=== PATIENT | female | born 1950 | race African-American/Black ===

== ENCOUNTER → 2019-02-28 | Outpatient (CLI) | payer OTHER ==
--- NOTE | 2019-02-28 09:05 | RAD ---
DATE: 02/28/2019 EXAM: MAMMO SUSANNAH SCREENING BILATERAL HISTORY: Routine screening COMPARISON: 03/07/2012 This study was interpreted with the benefit of Computerized Aided Detection (CAD). Breast Density: SCATTERED The breast parenchyma shows scattered fibroglandular densities. Breast parenchyma level B. FINDINGS: 2-D and 3-D tomosynthesis imaging was performed in CC and MLO projections. No new or enlarging breast densities are seen. Benign-appearing lymph node type densities are again noted in the axillary regions. Benign type calcifications are present. No suspicious microcalcifications have developed. IMPRESSION: There is no mammographic evidence of malignancy in either breast. BI-RADS CATEGORY: 2 BENIGN FINDING(S) RECOMMENDED FOLLOW-UP: 12M 12 MONTH FOLLOW-UP PQRS compliance statement: Patient information was entered into a reminder system with a target due date for the next mammogram. Mammography is a sensitive method for finding small breast cancers, but it does not detect them all and is not a substitute for careful clinical examination. A negative mammogram does not negate a clinically suspicious finding and should not result in delay in biopsying a clinically suspicious abnormality. "Our facility is accredited by the [employer] Mammography Program."
== END | disposition home or self-care (01) ==
LOC: MAMMO 07:58
PROVIDERS: ATTEND Family Medicine
DX: Z12.31 Encounter for screening mammogram for malignant neoplasm of breast (principal); N64.89 Other specified disorders of breast
CPT/HCPCS: 77063; 77067

== ENCOUNTER → 2019-06-01 | Outpatient (CLI) | payer OTHER ==
[~2019-06-01] MED LIST: AMLO10TA8 PO; ATOR20TA58 PO; HYDR12.575 PO
--- NOTE | 2019-06-01 10:54 | CARD ---
MR#: [id number] Date of Study: 06/01/2019 Ordering Physician: DAVE JORDAN, Referring Physician: DAVE JORDAN Tech: Alycia Orr RDCS APPROVED REPORT EXAM: Two-dimensional and M-mode echocardiogram with Doppler and color Doppler. Other Information Quality : AverageHR: 77bpm Rhythm : NSR INDICATION Arrhythmia 2D DIMENSIONS RVDd3.1 (2.9-3.5cm)Left Atrium(2D)3.9 (1.6-4.0cm) IVSd1.6 (0.7-1.1cm)Aortic Root(2D)2.7 (2.0-3.7cm) LVDd3.6 (3.9-5.9cm)LVOT Diameter1.9 (1.8-2.4cm) PWd0.9 (0.7-1.1cm)LVDs2.1 (2.5-4.0cm) FS (%) 42.7 %SV41.0 ml LVEF(%)74.7 (>50%) M-Mode DIMENSIONS Left Atrium(MM)3.87 (2.5-4.0cm)Aortic Root3.22 (2.2-3.7cm) Aortic Valve AoV Peak Shyam.163.7cm/sAoV VTI30.4cm AO Peak GR.10.7mmHgLVOT Peak Shyam.143.8cm/s AO Mean GR.5mmHgAVA (VMAX)2.39cm2 CORNELIUS (VTI)2.40cm2 Mitral Valve MV E Fhqmevgp50.9cm/sMV DECEL HSAR716ce MV A Nvrcxmsg066.7cm/sE/A Ratio0.8 Pulmonary Valve PV Peak Gmysnkqa837.7cm/s Tricuspid Valve TR P. Stcwkjek654yk/sRAP WQVCNRTB2krEx TR Peak Gr.76wnEjLAAW52ufSt LEFT VENTRICLE The left ventricle is normal size. There is moderate asymmetric left ventricular hypertrophy. The lef t ventricle is hyperdynamic. The Ejection Fraction is >70%. There is normal LV segmental wall motion. Transmitral Doppler flow pattern is Grade I-abnormal relaxation pattern. RIGHT VENTRICLE The right ventricle is normal size. There is normal right ventricular wall thickness. The right ventr icular systolic function is normal. ATRIA The left atrium size is normal. The right atrium size is normal. The interatrial septum is intact wit h no evidence for an atrial septal defect or patent foramen ovale as noted on 2-D or Doppler imaging. AORTIC VALVE The aortic valve is normal in structure and function. The aortic valve is trileaflet. Doppler and Col or Flow revealed trace aortic regurgitation. There is no significant aortic valvular stenosis. There is no aortic valvular vegetation. MITRAL VALVE The mitral valve is thickened but opens well. There is no evidence of mitral valve prolapse. There is no mitral valve stenosis. Doppler and Color-flow revealed trace mitral regurgitation. TRICUSPID VALVE The tricuspid valve is normal in structure and function. Doppler and Color Flow revealed trace tricus pid regurgitation. The PA pressure was estimated at 33 mmHg. There is no tricuspid valve prolapse or vegetation. There is no tricuspid valve stenosis. PULMONIC VALVE The pulmonary valve is normal in structure and function. Doppler and Color Flow revealed trace pulmon ic valvular regurgitation. There is no pulmonic valvular stenosis. GREAT VESSELS The aortic root is normal in size. The ascending aorta is normal in size. The IVC is normal in size a nd collapses >50% with inspiration. PERICARDIAL EFFUSION There is no evidence of significant pericardial effusion. Critical Notification Critical Value: No <Conclusion> The left ventricle is hyperdynamic. The Ejection Fraction is >70%. There is normal LV segmental wall motion. Transmitral Doppler flow pattern is Grade I-abnormal relaxation pattern. Trace aortic regurgitation. Trace mitral regurgitation. Trace tricuspid regurgitation. The PA pressure was estimated at 33 mmHg. There is no evidence of significant pericardial effusion. Signed by : Dave Jordan, Electronically Approved : 06/01/2019 10:53:51
== END | disposition home or self-care (01) ==
LOC: ECHO 09:57
PROVIDERS: ATTEND Internal Medicine Cardiovascular Disease
DX: I51.7 Cardiomegaly (principal)
CPT/HCPCS: 93306

== ENCOUNTER → 2019-06-06 | Day surgery (SDC) | payer OTHER ==
[~2019-06-06] MED LIST changes: +IV RINGERS,LACTATED 1000ML 1,000 ML IV SCH; +PROPOFOL 20 ML IV ONE
--- NOTE | 2019-06-06 09:23 | CONS ---
DATE OF CONSULTATION: REFERRING PHYSICIAN: Chip De León MD REASON FOR CONSULTATION: Colorectal screening, family history of colon polyps/cancer. HISTORY OF PRESENT ILLNESS: A 68-year-old -[place] female with past medical history significant for hypertension, hyperlipidemia, status post cholecystectomy, hysterectomy, is seen for colonoscopy. Bowel habits are regular without diarrhea or constipation. There has been infrequent bleeding. Weight and appetite are stable. Family history is significant for colon polyps and possible cancer with her father and she is otherwise without additional complaints. PAST MEDICAL HISTORY: Hypertension, hyperlipidemia. ALLERGIES: LISINOPRIL. MEDICATIONS: Include amlodipine, atorvastatin, hydrochlorothiazide. FAMILY AND SOCIAL HISTORY: Significant for diabetes with her mother and colon polyps with her father: She is a nondrinker, nonsmoker. She is retired from [employer]. PAST SURGICAL HISTORY: Status post cholecystectomy, hysterectomy. REVIEW OF SYSTEMS: HEENT: There is no decrease in visual acuity issues. CARDIAC: There is history of hypertension. PULMONARY: No history of shortness breath, cough, asthma. RENAL: No dysuria, frequency, hematuria. NEUROLOGIC: No stroke, migraine, neuropathy. PSYCHIATRIC: No mood swings, depression, insomnia. GASTROINTESTINAL: See history of present illness. ENDOCRINE: History of hyperlipidemia. DERMATOLOGIC: No skin rashes or pruritus. HEMATOLOGIC: No bleeding, bruising, coagulopathy. MUSCULOSKELETAL: No history of osteoarthrosis, arthralgias, myalgias. PHYSICAL EXAMINATION: GENERAL: Reveals a well-nourished, well-developed -[place] female who is alert, cooperative, in no acute distress. VITAL SIGNS: Temperature 98.1, pulse 96, respirations 20. HEENT: Exam is normocephalic, atraumatic head. Pupils and extraocular muscles are not tested. Sclerae anicteric. NECK: Supple. LUNGS: Clear. CARDIOVASCULAR: Reveals an S1, S2 without S3, S4 or appreciable murmur. ABDOMEN: Reveals a soft abdomen, normal bowel sounds, without appreciable hepatosplenomegaly with right upper quadrant cholecystectomy incision and infraumbilical hysterectomy incision. EXTREMITIES: Reveal no cyanosis, clubbing or edema. IMPRESSION: Colorectal screening with family history of colonic polyps/cancer is warranted at this time. Risks and benefits of procedure including risk of hemorrhage and perforation requiring operation were discussed with the patient who is willing to proceed at this time. I would like to thank Dr. De León for allowing us to consult and participate in this patient's care. KAISER BREWSTER MD DR: FLOYD/ray JOB#: [id number] / [id number] CHIP Johnson MD
[2019-06-06 09:35] VITALS: BP 130/73
--- NOTE | 2019-06-08 08:45 | PATHOLOGY ---
[facility] Accession Number: [id number] . 01 Material submitted: . sigmoid colon - SIGMOID POLYP . 01 Clinical history: . Pre-OP DX: Screening Post-OP DX: Polyp . 02 Diagnosis: Colon biopsy, sigmoid polyp: - Pedunculated tubular adenoma. . (JP:mm; 06/07/2019) [facility]06/07/2019 . 02 Comment: There is no high grade dysplasia or evidence of malignancy. . (JPM:mm; 06/07/2019) . 02 Electronically signed: . Stephane Cheng MD, Pathologist NPI- [id number] . 01 Gross description: . Received in formalin labeled "Imani Acosta, sigmoid polyp," is a 1.0 x 0.7 x 0.6 cm polypoid piece of lomeli soft tissue. The margin is inked and the tissue is sectioned perpendicular to the margin and submitted entirely in cassette A1. (TSD; 06/06/2019) TOB/TOB . 02 Pathologist provided ICD-10: D12.5, Z12.11 . 02 CPT . 407382 Specimen Comment: A courtesy copy of this report has been sent to Specimen Comment: [phone], . Specimen Comment: Report sent to and Performed at: 01 [facility] [address], [place] [id number] MD Derick Tavares MD Phone: [phone] Performed at: 02 [facility] [address] [place], [place] [id number] MD Stephane Cheng MD Phone: [phone]
== END ==
LOC: ENDOS 07:44
PROVIDERS: ATTEND Internal Medicine Gastroenterology
DX: D12.5 Benign neoplasm of sigmoid colon (principal); K57.30 Diverticulosis of large intestine without perforation or abscess without bleeding; K64.0 First degree hemorrhoids; I10 Essential (primary) hypertension; Z90.49 Acquired absence of other specified parts of digestive tract; E78.5 Hyperlipidemia, unspecified; Z90.710 Acquired absence of both cervix and uterus; Z88.8 Allergy status to other drugs, medicaments and biological substances
CPT/HCPCS: 45385; 88305; J2704; 45380

== ENCOUNTER → 2020-06-11 | Outpatient (CLI) | payer MEDICARE ==
[2019-06-06 09:35] VITALS: BP 130/73
[~2020-06-11] MED LIST changes: -IV RINGERS,LACTATED 1000ML 1,000 ML IV SCH; -PROPOFOL 20 ML IV ONE
--- NOTE | 2020-06-11 16:53 | CARD ---
MR#: [id number] Date of Study: 06/11/2020 Ordering Physician: DAVE YU, Referring Physician: DAVE YU Tech: Pippa Farnsworth RDCS APPROVED REPORT EXAM: Two-dimensional and M-mode echocardiogram with Doppler and color Doppler. Other Information Quality : Good INDICATION Arrhythmia 2D DIMENSIONS RVDd3.4 (2.9-3.5cm)Left Atrium(2D)3.4 (1.6-4.0cm) IVSd1.4 (0.7-1.1cm)Aortic Root(2D)2.5 (2.0-3.7cm) LVDd2.8 (3.9-5.9cm)LVOT Diameter2.0 (1.8-2.4cm) PWd1.0 (0.7-1.1cm)LVDs2.0 (2.5-4.0cm) FS (%) 29.3 %SV17.3 ml Aortic Valve AoV Peak Shyam.158.9cm/sAoV VTI26.5cm AO Peak GR.10.1mmHgLVOT Peak Shyam.133.0cm/s AO Mean GR.5mmHgAVA (VMAX)2.58cm2 CORNELIUS (VTI)3.60qx2RQ P 1/2 Dcfx245nu Mitral Valve MV E Xpreubxl29.8cm/sMV DECEL FEDC468nq MV A Sagybgfc797.0cm/sE/A Ratio0.7 Tricuspid Valve TR P. Rqtzuoad942ai/sRAP CMKHDLJZ0qwDh TR Peak Gr.02fsNcITIM34yvUs Pulmonary Vein S1 Moxvgxks15.4cm/sD2 Bytevaic65.6cm/s LEFT VENTRICLE The left ventricle is normal size. There is mild concentric left ventricular hypertrophy. The left ve ntricular systolic function is normal and the ejection fraction is within normal range. The Ejection Fraction is 55-60%. There is normal LV segmental wall motion. Transmitral Doppler flow pattern is Gra de I-abnormal relaxation pattern. RIGHT VENTRICLE The right ventricle is normal size. The right ventricular systolic function is normal. ATRIA The left atrium size is normal. The right atrium size is normal. The interatrial septum is intact wit h no evidence for an atrial septal defect or patent foramen ovale as noted on 2-D or Doppler imaging. AORTIC VALVE The aortic valve is calcified but opens well. Doppler and Color Flow revealed mild aortic regurgitati on. There is no significant aortic valvular stenosis. MITRAL VALVE The mitral valve is calcified but opens well. There is no evidence of mitral valve prolapse. There is no mitral valve stenosis. Doppler and Color-flow revealed mild mitral regurgitation. TRICUSPID VALVE The tricuspid valve is normal in structure and function. Doppler and Color Flow revealed trace tricus pid regurgitation. The PA pressure was estimated at 28 mmHg. There is no tricuspid valve stenosis. PULMONIC VALVE The pulmonic valve is not well visualized. Doppler and Color Flow revealed mild pulmonic valvular reg urgitation. There is no pulmonic valvular stenosis. GREAT VESSELS The aortic root is normal in size. The ascending aorta is not well seen. The IVC is normal in size an d collapses >50% with inspiration. PERICARDIAL EFFUSION There is no evidence of significant pericardial effusion. Critical Notification Critical Value: No <Conclusion> The left ventricle is normal size. The left ventricular systolic function is normal and the ejection fraction is within normal range. The Ejection Fraction is 55-60%. There is mild concentric left ventricular hypertrophy. Doppler and Color Flow revealed mild aortic regurgitation. There is no significant aortic valvular stenosis. Doppler and Color-flow revealed mild mitral regurgitation. Doppler and Color Flow revealed trace tricuspid regurgitation. The PA pressure was estimated at 28 mmHg. Signed by : Neymar Ryees MD Electronically Approved : 06/11/2020 16:52:30
== END | disposition home or self-care (01) ==
LOC: ECHO 09:14
PROVIDERS: ATTEND Internal Medicine Cardiovascular Disease
DX: I08.8 Other rheumatic multiple valve diseases (principal); I49.9 Cardiac arrhythmia, unspecified
CPT/HCPCS: 93306